=== PATIENT | female | born 1990 | race Caucasian/White ===

== ENCOUNTER 2017-06-11 11:36 | Inpatient (IN) | payer OTHER ==
[~2017-06-11] VITALS: Ht 160 cm; Wt 66.4 kg
[~2017-06-11 11:36] MED LIST: CLEOCIN HCL300 MG PO; MOTRIN 600600 MG/TAB PO; PRENATAL1 TA7
[2017-07-05] VITALS (20 sets, daily range): BP systolic 104–133; BP diastolic 62–83; PULSE 60–110; TEMP 97.7–98.2
[2017-07-05] MEDS ORDERED: TUMS500 MG (07:30)
[2017-07-05 07:33] LABS: BASO % 0.4 % (0.0-2.0); EOS # 0.1 (0.0-0.7); EOS % 0.5 % (0-4.0); GRAN # 7.8 (1.4-6.5); GRAN % 71.2 % (42.2-75.2); HEMOGLOBIN 14.6 g/dl (12.5-16.0); LYMPH # 2.3 (1.2-3.4); LYMPH % 20.5 % (20.0-51.0); MEAN CELL VOLUME 92 fl (80.0-100.0); MEAN CORPUSCULAR HEMOGLOBIN 32 pg (27.0-31.0); MEAN CORPUSCULAR HGB CONC 35 g/dl (33.0-37.0); MEAN PLATELET VOLUME 10.9 fl (7.4-10.4); MONO # 0.8 (0.1-0.6); MONO % 6.9 % (1.7-9.3); PLATELET COUNT 228 K/mm3 (130-400); RED BLOOD COUNT 4.58 M/mm3 (4.10-5.30); REDCELL DISTRIBUTION WIDTH-CV 12.9 % (11.5-14.5)
[2017-07-06 01:00] VITALS: BP 104/58; PULSE 54; TEMP 97.8
[2017-07-06 07:30] VITALS: BP 111/72; PULSE 59; TEMP 97.5
[2017-07-06] MEDS ORDERED: IBU800 M1 PO (11:28)
== END 2017-07-06 13:10 | disposition home or self-care (01) | DRG 766 ==
LOC: LDR 07-05 06:28 → OB 07-05 06:55 → LDR 07-12 11:35
PROVIDERS: Student in an Organized Health Care Education/Training Program
PROC: 10D00Z1 Extraction of Products of Conception, Low, Open Approach (ICD-10-PCS; principal; 2017-07-05)
DX: O34.211 Maternal care for low transverse scar from previous cesarean delivery (principal); N85.8 Other specified noninflammatory disorders of uterus; Z3A.39 39 weeks gestation of pregnancy; Z37.0 Single live birth
CPT/HCPCS: J0690; J1885; J2370; J2405; J2590; J3010; J7120

== ENCOUNTER 2017-07-01 05:41 | Outpatient (CLI) | payer OTHER ==
[~2017-07-01] VITALS: Ht 160 cm; Wt 66.4 kg
[2017-07-01 06:06] VITALS: BP 116/76; PULSE 88; TEMP 97.7
[2017-07-01 06:30] VITALS: BP 116/76; PULSE 88; TEMP 98.2
[2017-07-01 07:30] VITALS: BP 108/75; PULSE 76
== END 2017-07-01 07:55 | disposition home or self-care (01) ==
LOC: LDRO 05:41
DX: O62.9 Abnormality of forces of labor, unspecified (principal); Z3A.38 38 weeks gestation of pregnancy

== ENCOUNTER 2021-05-28 15:01 | Outpatient (CLI) | payer BC ==
[~2021-05-28] VITALS: Ht 165.1 cm; Wt 73.2 kg
[~2021-05-28 15:01] MED LIST changes: +IBU800 M1 PO; +TUMS500 MG
[2021-05-28] MEDS ORDERED: LEXAPRO 10MG10 MG PO (15:14)
[2021-05-28] MEDS ORDERED: ASPIRIN 81M81 MG/TA2 PO (15:14)
[2021-05-28 15:30] VITALS: BP 136/90; PULSE 102; TEMP 98
--- NOTE | 2021-05-28 15:32 | NUR ---
1505: PT. AMBULATORY TO UNIT FROM CLINIC DUE TO "HEART BEATING OUT OF CHEST" FEELING WELL ELEVATED PULSE AND BP. ORIENTED TO LR3, GOWN ON, EFM/TOCO APPLIED, VITAL SIGNS OBTAINED, ASSESSMENTS COMPLETED. DISCUSSED POC W/ PT. WILL CONT. TO MONITOR AND DISCUSS W/ DR. ROLES (ATTENDING RADIOLOGIST DOC)
[2021-05-28 16:00] VITALS: BP 121/79; PULSE 92
[2021-05-28 16:24] LABS: BASO % 0.3 % (0.0-2.0); EOS % 0.3 % (0-4.0); GRAN % 72.5 % (42.2-75.2); HEMOGLOBIN 10.6 g/dl (12.5-16.0); LYMPH # 2.2 K/mm3 (1.2-3.4); LYMPH % 19.6 % (20.0-51.0); MEAN CELL VOLUME 87 fl (80.0-100.0); MEAN CORPUSCULAR HEMOGLOBIN 31 pg (27.0-31.0); MEAN CORPUSCULAR HGB CONC 35 g/dl (33.0-37.0); MEAN PLATELET VOLUME 10.4 fl (7.4-10.4); MONO # 0.7 K/mm3 (0.1-0.6); MONO % 6.7 % (1.7-9.3); PLATELET COUNT 264 K/mm3 (130-400); RED BLOOD COUNT 3.48 M/mm3 (4.10-5.30); REDCELL DISTRIBUTION WIDTH-CV 12.6 % (11.5-14.5)
[2021-05-28 16:28] LABS: HEMATOCRIT 30.4 % (37.0-47.0)
[2021-05-28 16:30] VITALS: BP 113/72; PULSE 83
[2021-05-28 16:52] LABS: ALBUMIN 2.9 gm/dL (3.5-5.0); BILIRUBIN,TOTAL 0.1 mg/dL (0.2-1.2); CALCIUM 8.7 mg/dL (8.4-10.2); CREATININE, serum 0.61 mg/dL (0.57-1.11); POTASSIUM 3.8 mmol/L (3.5-4.5); TOTAL PROTEIN 6.4 gm/dL (6.2-8.1)
[2021-05-28 17:00] VITALS: BP 107/69; PULSE 79
--- NOTE | 2021-05-28 17:08 | NUR ---
FHT 1700: BROKEN STRIP NOTED. RN ADJUSTED EFM
[2021-05-28 17:13] LABS: TSH w REFLEX 2.107 uIU/mL (0.350-4.940)
[2021-05-28 17:30] VITALS: BP 108/63; PULSE 82
[2021-05-28 17:35] VITALS: BP 106/62; PULSE 74
== END 2021-05-28 17:49 | disposition home or self-care (01) ==
LOC: LDRO 15:01 → LDR 15:05 → LDRO 17:49
PROVIDERS: Obstetrics & Gynecology
DX: Z34.92 Encounter for supervision of normal pregnancy, unspecified, second trimester (principal); Z3A.25 25 weeks gestation of pregnancy
CPT/HCPCS: OP

== ENCOUNTER 2021-08-21 13:35 | Inpatient (IN) | payer BC ==
[2021-08-21] VITALS (10 sets, daily range): BP systolic 101–132; BP diastolic 61–74; PULSE 70–92; TEMP 97.8–98.6
[~2021-08-21] VITALS: Ht 165.1 cm; Wt 89.1 kg
[~2021-08-21 13:35] MED LIST changes: +ASPIRIN 81M81 MG/TA2 PO; +LEXAPRO 10MG10 MG PO
--- NOTE | 2021-08-21 15:50 | NUR ---
1550-G3L2 [address] Bashirures ambulatory to 211 for scheudled repeat c/s for polyhydramnios and breech. Assisted into gown and placed on EFM. VSS. Updated on plan of care. Assessment complete. IV to left wrist. Blood collected and sent to lab. LR infusing. Pre op meds given. Abdomen cleansed with chlorahexadine per policy. 1735-Patient up to ambulate to OR>
[2021-08-21 16:54] LABS: BASO % 0.3 % (0.0-2.0); EOS % 0.1 % (0.0-4.0); GRAN # 8.1 K/mm3 (1.4-6.5); GRAN % 74.4 % (42.2-75.2); HEMOGLOBIN 11.9 g/dl (12.5-16.0); LYMPH # 2.1 K/mm3 (1.2-3.4); LYMPH % 18.9 % (20.0-51.0); MEAN CELL VOLUME 84 fl (80.0-100.0); MEAN CORPUSCULAR HEMOGLOBIN 27 pg (27-31); MEAN CORPUSCULAR HGB CONC 33 g/dl (33.0-37.0); MEAN PLATELET VOLUME 11.5 fl (7.4-10.4); MONO # 0.6 K/mm3 (0.1-0.6); MONO % 5.8 % (1.7-9.3); PLATELET COUNT 287 K/mm3 (130-400); RED BLOOD COUNT 4.34 M/mm3 (4.10-5.30); REDCELL DISTRIBUTION WIDTH-CV 14.6 % (11.5-14.5)
[2021-08-21 16:55] LABS: HEMATOCRIT 36.6 % (37.0-47.0)
--- NOTE | 2021-08-21 19:20 | NUR ---
Meets PACU discharge criteria. To post op/post room via bed.
[2021-08-22 04:45] VITALS: BP 117/76; PULSE 56; TEMP 98.7
[2021-08-22 08:15] VITALS: BP 107/64; PULSE 60; TEMP 97.9
--- NOTE | 2021-08-22 09:54 | NUR ---
Initial visit; Parents thanked [employer] for offering congratulations and God's blessings for the of their son. [employer] thanked family for choosing [facility].
[2021-08-22 12:00] VITALS: BP 110/60; PULSE 70; TEMP 98
[2021-08-22] MEDS ORDERED: IBU800 M1 PO (12:04)
[2021-08-22] MEDS ORDERED: TYLENOL 500MG500 MG PO (12:04)
--- NOTE | 2021-08-22 15:14 | NUR ---
1500REPORT RECEIVED FROM Julius LARRY RN. THIS RN WILL ASSUME CARE AT THIS TIME.
[2021-08-22 16:24] VITALS: BP 107/69; PULSE 75
--- NOTE | 2021-08-22 18:36 | NUR ---
REPORT RECEIVED. PLAN OF CARE REVEWIWED. PATIENT IN ROOM, NURSING INFANT.
[2021-08-22 19:45] VITALS: BP 101/68; PULSE 72; TEMP 97.8
[2021-08-23 08:09] VITALS: BP 128/72; PULSE 76; TEMP 98.4
== END 2021-08-23 11:00 | disposition home or self-care (01) | DRG 786 ==
LOC: LDR 13:35 → OB 15:43
PROVIDERS: ADMIT Student in an Organized Health Care Education/Training Program
PROC: 10D00Z1 Extraction of Products of Conception, Low, Open Approach (ICD-10-PCS; principal; 2021-08-21)
DX: O40.3XX0 Polyhydramnios, third trimester, not applicable or unspecified (principal); O99.42 Diseases of the circulatory system complicating childbirth; I47.1 Supraventricular tachycardia; O32.1XX0 Maternal care for breech presentation, not applicable or unspecified; O99.344 Other mental disorders complicating childbirth; F32.A Depression, unspecified; O34.211 Maternal care for low transverse scar from previous cesarean delivery; O69.1XX0 Labor and delivery complicated by cord around neck, with compression, not applicable or unspecified; O99.892 Other specified diseases and conditions complicating childbirth; G89.29 Other chronic pain; M54.9 Dorsalgia, unspecified; Z3A.38 38 weeks gestation of pregnancy; Z37.0 Single live birth; Z86.16 Personal history of COVID-19
CPT/HCPCS: J0171; J0690; J1100; J1885; J2370; J2405; J2590; J7120